=== PATIENT | female | born 1935 | race African-American/Black ===

== ENCOUNTER 2022-10-09 06:27 | Inpatient (IN) | payer BC, MEDICARE ==
[~2022-10-09] VITALS: Ht 177.8 cm; Wt 112.5 kg
[2022-10-09 08:22] LABS: HEMATOCRIT. 42.3 % (36.0-48.0); HEMOGLOBIN. 13.8 g/dL (12.0-16.0); MEAN CORPUSCULAR HEMOGLOBIN 27.5 pg (28.0-32.0); MEAN CORPUSCULAR VOLUME 84.3 fL (81.0-99.0); MEAN PLATELET VOLUME 9.7 fl (7.4-10.4); PLATELET 147 x1000/uL (130-400); RED BLOOD CELL COUNT 5.02 mill/uL (4.2-5.4); RED CELL DISTRIBUTION WIDTH 15.2 % (11.6-14.6)
[2022-10-09 08:31] LABS: CHLORIDE 112 mEq/L (98-107)
[2022-10-09 08:36] LABS: PLATELET ESTIMATE NORMAL
[2022-10-09] MEDS ORDERED: ENALAPRIL 2.5MG/2ML VIAL 2ML IV ONE (09:45)
[2022-10-09] MEDS ORDERED: ENALAPRIL 1.25MG/ML VIAL 1ML IV NR (09:45)
[2022-10-09] MEDS ORDERED: FUROSEMIDE 40MG/4ML VIAL IVP ONE (09:45)
[2022-10-09] MEDS ORDERED: GUAIFENESIN 200MG/10ML SUGAR FREE UDC PO PRN (11:00)
[2022-10-09] MEDS ORDERED: NITROGLYCERIN 0.4MG TABLET SL SL PRN (11:00)
[2022-10-09] MEDS ORDERED: ACETAMINOPHEN 325MG TABLET PO PRN ×2 (11:00)
[2022-10-09] MEDS ORDERED: DOCUSATE SODIUM 100MG CAPSULE PO PRN (11:00)
[2022-10-09] MEDS ORDERED: IPRATROPIUM/ALBUTEROL 0.5-3(2.5)MG/3ML NEB NEB PRN (11:00)
[2022-10-09] MEDS ORDERED: MAGNESIUM/ALUMINUM HYDROXIDE/SIMETHICONE 30ML UDC PO PRN (11:00)
[2022-10-09] MEDS ORDERED: ONDANSETRON HCL 4MG/2ML INJ IV PRN (11:00)
[2022-10-09 12:14] LABS: T4 FREE 1.11 ng/dL (0.76-1.46)
[2022-10-09] MEDS: AMLODIPINE 10MG TABLET PO SCH (12:36)
[2022-10-09] MEDS: LOSARTAN POTASSIUM 50 MG TABLET PO SCH (12:45)
[2022-10-09] MEDS: ENOXAPARIN 40MG/0.4ML SYR SUBCUT SCH (12:45)
[2022-10-09 12:58] LABS: FOLIC ACID (FOLATE) SERUM 14.3 ng/mL (>5.38)
[2022-10-09 14:00] VITALS: BP 158/73
[2022-10-09 16:00] VITALS: BP 197/73
[2022-10-09] MEDS: CLONIDINE 0.1MG TABLET PO PRN (16:59)
[2022-10-09] MEDS: FUROSEMIDE 40MG/4ML VIAL IVP SCH (17:05)
[2022-10-09] MEDS ORDERED: NIFE90TA60 PO (17:14)
[2022-10-09] MEDS ORDERED: OMEP20CA14 PO (17:14)
[2022-10-09] MEDS ORDERED: HYDR-4135 PO (17:14)
[2022-10-09] MEDS ORDERED: LOSA1TAB37 MT (17:14)
[2022-10-09] MEDS ORDERED: FURO20TA4 PO (17:14)
[2022-10-09 20:54] VITALS: BP 147/59
[2022-10-09] MEDS ORDERED: ZOLPIDEM TARTRATE 5MG TABLET PO PRN (21:00)
[2022-10-09] MEDS: FAMOTIDINE 20MG TABLET PO SCH (21:22)
[2022-10-09] MEDS: SPIRONOLACTONE 25MG TABLET PO SCH (21:28)
[2022-10-10 00:43] LABS: CREATINE KINASE MB FRACTION 1.2 ng/mL (0.5-3.6)
[2022-10-10 00:50] VITALS: BP 139/49
[2022-10-10 04:00] VITALS: BP 165/55
[2022-10-10] MEDS: FUROSEMIDE 40MG/4ML VIAL IVP SCH ×2 (05:32→17:25)
[2022-10-10] MEDS: CLONIDINE 0.1MG TABLET PO PRN (05:35)
[2022-10-10 06:31] LABS: BASOPHILS % 0.7 % (0.0-2.0); EOSINOPHILS % 4.6 % (0.0-5.0); HEMATOCRIT. 41.2 % (36.0-48.0); HEMOGLOBIN. 13.4 g/dL (12.0-16.0); LYMPHOCYTES % 18.3 % (20.0-50.0); MEAN CORPUSCULAR HEMOGLOBIN 27.6 pg (28.0-32.0); MEAN CORPUSCULAR VOLUME 84.7 fL (81.0-99.0); MEAN PLATELET VOLUME 10.7 fl (7.4-10.4); MONOCYTES % 5.8 % (2.0-8.0); NEUTROPHILS % 70.6 % (40.0-76.0); PLATELET 142 x1000/uL (130-400); RED BLOOD CELL COUNT 4.86 mill/uL (4.2-5.4)
[2022-10-10 06:55] LABS: CHLORIDE 107 mEq/L (98-107)
[2022-10-10 07:05] LABS: PHOSPHORUS 2.6 mg/dL (2.5-4.9)
[2022-10-10 07:59] VITALS: BP 125/55
[2022-10-10] MEDS ORDERED: ASPIRIN 325MG EC TABLET PO SCH (09:00)
[2022-10-10] MEDS: AMLODIPINE 10MG TABLET PO SCH (09:03)
[2022-10-10] MEDS: ASPIRIN 81MG EC TABLET PO SCH (09:03)
[2022-10-10] MEDS: LOSARTAN POTASSIUM 50 MG TABLET PO SCH (09:03)
[2022-10-10] MEDS: SPIRONOLACTONE 25MG TABLET PO SCH ×2 (09:04→20:47)
[2022-10-10] MEDS: FAMOTIDINE 20MG TABLET PO SCH (09:04)
[2022-10-10] MEDS ORDERED: POTASSIUM CHLORIDE 20MEQ TABLET SR PO NR (10:00)
[2022-10-10] MEDS: ENOXAPARIN 40MG/0.4ML SYR SUBCUT SCH (10:19)
[2022-10-10 12:00] VITALS: BP 128/52
[2022-10-10 15:41] VITALS: BP 126/47
[2022-10-10 20:00] VITALS: BP 131/54
[2022-10-11] VITALS: BP 147/52
[2022-10-11 04:00] VITALS: BP 133/55
[2022-10-11] MEDS: FUROSEMIDE 40MG/4ML VIAL IVP SCH (05:26)
[2022-10-11 08:00] VITALS: BP 144/53
[2022-10-11] MEDS ORDERED: FURO-151 MT (08:28)
[2022-10-11] MEDS ORDERED: ASPI-1406 PO (08:28)
[2022-10-11] MEDS ORDERED: AMLO10TA80 PO (08:28)
[2022-10-11] MEDS ORDERED: SPIR25TA PO (08:28)
[2022-10-11] MEDS ORDERED: LOSA50TA3 PO (08:28)
[2022-10-11] MEDS: SPIRONOLACTONE 25MG TABLET PO SCH (08:45)
[2022-10-11] MEDS: AMLODIPINE 10MG TABLET PO SCH (08:45)
[2022-10-11] MEDS: LOSARTAN POTASSIUM 50 MG TABLET PO SCH (08:45)
[2022-10-11] MEDS: ASPIRIN 81MG EC TABLET PO SCH (08:45)
[2022-10-11] MEDS ORDERED: FAMOTIDINE 20MG TABLET PO SCH (09:00)
[2022-10-11 10:13] VITALS: BP 144/53
[2022-10-11] MEDS ORDERED: LACTULOSE 20G/30ML UDC PO NR (10:30)
[2022-10-11] MEDS: ENOXAPARIN 40MG/0.4ML SYR SUBCUT SCH (10:37)
[2022-10-11 12:00] VITALS: BP 145/45
== END 2022-10-11 14:15 | disposition home health service (06) | DRG 291 ==
LOC: ER 06:27 → 7WST 10:11 → EDBEDREQ 10:12 → EDBEDREQTM 10:12 → SUPCPDRO 10:48
PROVIDERS: ADMIT Internal Medicine; ATTEND Internal Medicine
DX: I11.0 Hypertensive heart disease with heart failure (principal); I50.33 Acute on chronic diastolic (congestive) heart failure; I16.1 Hypertensive emergency; I49.3 Ventricular premature depolarization; M94.0 Chondrocostal junction syndrome [Tietze]
CPT/HCPCS: 36415; 71045; 80053; 80061; 82550; 82553; 82607; 82746; 83036; 83540; 83550; 83735; 83880; 84100; 84145; 84439; 84443; 84484; 85025; 93005; 93306; 93970; 97116; 97162; 97166; 99285; J1650; J1940; J3490